=== PATIENT | female | born 1980 | race African-American/Black ===

== ENCOUNTER 2022-11-19 10:45 | Outpatient (CLI) | payer BC | END 2022-11-19 10:46 | disposition home or self-care (01) | LOC: CSHMRI 10:45 | PROVIDERS: ATTEND Orthopaedic Surgery | DX: M54.16 Radiculopathy, lumbar region (principal); M51.27 Other intervertebral disc displacement, lumbosacral region; M48.07 Spinal stenosis, lumbosacral region | CPT/HCPCS: 72148 ==